=== PATIENT | female | born 1975 | race Hispanic/Latino ===

== ENCOUNTER 2018-11-03 11:38 | Inpatient (IN) | payer OTHER ==
[~2018-11-03] VITALS: Ht 152.4 cm; Wt 61.1 kg
[2018-11-03] MEDS ORDERED: SODIUM CHLORIDE 0.9% 1000ML 1,000 ML IV ONE ×2 (12:21→18:06)
[2018-11-03] MEDS ORDERED: ZOSYN 3.375GM+NS 50ML 50 ML IV ONE ×2 (12:21→21:15)
[2018-11-03 12:29] LABS: BASOPHILS % (AUTO) 0.2 % (0.0-5.0); HEMATOCRIT 35.3 % (42-54); MEAN CORPUSCULAR HEMOGLOBIN 27.7 pg (27.0-33.0); MEAN CORPUSCULAR HGB CONC 33.4 g/dL (32.0-36.0); MEAN CORPUSCULAR VOLUME 82.8 fL (79-99); NEUTROPHILS % (AUTO) 97.8 % (40.0-77.0); PLATELET COUNT (AUTO) 136 K/uL (130-400); RED BLOOD CELL COUNT(AUTO) 4.26 MIL/uL (4.50-6.20); RED CELL DISTRIBUTION WIDTH 13.6 % (11.0-15.5); WHITE BLOOD COUNT (AUTO) 11.1 K/uL (4.8-10.8)
[2018-11-03 12:47] LABS: INR 1.01 (0.85-1.15); PROTHROMBIN TIME 10.6 SEC (9.6-11.6)
[2018-11-03 12:51] LABS: BAND NEUTROPHILS % (MANUAL) 23 % (0-2); SEGMENTED NEUTROPHILS % 77 % (40-70)
[2018-11-03 12:52] LABS: MAN.DIFF COMMENT-IMPRESSION MANUAL DIFFERENTIAL
[2018-11-03 12:53] LABS: ALANINE AMINOTRANSFERASE 280 U/L (12-78); ALBUMIN 3.6 g/dL (3.5-5.0); ASPARTATE AMINOTRANSFERASE 251 U/L (10-37); BILIRUBIN,TOTAL 1.5 mg/dL (0.2-1.0); CARBON DIOXIDE 20 mmol/L (21-32); CHLORIDE 102 mmol/L (101-111); CREATINE KINASE, TOTAL 60 U/L (21-232); CREATININE 1.3 mg/dL (0.5-1.5); GLOMERULAR FILTR. RATE CALC 64 mL/min (>60); GLUCOSE,RANDOM 112 mg/dL (70-105); MYOGLOBIN 47 ng/mL (10-92); PLATELET MORPHOLOGY COMMENT ADEQUATE; SODIUM SERUM 137 mmol/L (136-145); TOTAL PROTEIN, SERUM 7.4 g/dL (6.0-8.3); TROPONIN I < 0.04 ng/mL (0.00-0.06); UREA NITROGEN, BLOOD 17 mg/dL (7-18)
[2018-11-03] MEDS ORDERED: VANCOMYCIN 1GM+NS 250ML 0 ML IV ONE (12:54)
[2018-11-03 12:55] LABS: POTASSIUM 2.7 mmol/L (3.5-5.1)
[2018-11-03] MEDS ORDERED: VANCOMYCIN 1GM+NS 250ML 250 ML IV ONE ×2 (12:56→14:36)
[2018-11-03] MEDS ORDERED: POTASSIUM CHLORIDE 20 MEQ ERTAB PO ONE (13:04)
[2018-11-03] MEDS ORDERED: VANCOMYCIN 1GM+NS 250ML 250 ML IV SCH (13:15)
[2018-11-03] MEDS: SODIUM CHLORIDE 0.9% 1000ML 1,000 ML IV SCH ×2 (14:15→22:15)
[2018-11-03] MEDS ORDERED: ACETAMINOPHEN 325 MG TAB PO PRN (15:45)
[2018-11-03] MEDS ORDERED: HYDRALAZINE HCL 20 MG/ML VIAL IV PRN (15:45)
[2018-11-03] MEDS ORDERED: POTASSIUM CHLORIDE 10% ELIXIR 20 MEQ/15 ML UDCUP PO PRN (15:45)
[2018-11-03] MEDS ORDERED: TRAMADOL HCL 50 MG TABLET ONE (18:10)
[2018-11-03 19:56] LABS: APPEARANCE,URINE CLOUDY (CLEAR); BILIRUBIN,URINE NEGATIVE (NEGATIVE); COLOR,URINE ORANGE (YELLOW); GLUCOSE, URINE (UA) NEGATIVE (NEGATIVE); KETONES,URINE NEGATIVE (NEGATIVE); LEUKOCYTE ESTERASE ,URINE NEGATIVE (NEGATIVE); NITRATE,URINE POSITIVE (NEGATIVE); OCCULT BLOOD,URINE LARGE (NEGATIVE); PH,URINE 5.5 (5.0-8.0); PROTEIN,URINE 30 (NEGATIVE); UROBILINOGEN,URINE 0.2 mg/dL (0.2-1.0)
[2018-11-03 20:05] LABS: AMPHET/METH SCREEN,URINE NEGATIVE (NEGATIVE); BARBITURATE SCREEN, URINE NEGATIVE (NEGATIVE); BENZODIAZEPINES SCREEN,URINE NEGATIVE (NEGATIVE); CANNABINOID SCREEN,URINE NEGATIVE (NEGATIVE); COCAINE SCREEN,URINE NEGATIVE (NEGATIVE); OPIATE SCREEN,URINE NEGATIVE (NEGATIVE); PHENCYCLIDINE SCREEN,URINE NEGATIVE (NEGATIVE)
[2018-11-03 20:37] LABS: WBC,URINE 0-1 /HPF (0-1)
[2018-11-03 20:38] LABS: AMORPHOUS SEDIMENT,UR Few /LPF (None Seen); BACTERIA,URINE Moderate /HPF (None Seen); SQUAMOUS EPITHELIAL CELL,UR Few /HPF (0-2)
[2018-11-03 20:39] LABS: MUCUS,URINE Few LPF (None Seen)
[2018-11-03] MEDS: FAMOTIDINE/PF 20 MG/2 ML VIAL IV SCH (21:00)
[2018-11-03] MEDS: ZOSYN 3.375GM+NS 50ML 50 ML IV SCH (21:00)
[2018-11-03 21:25] LABS: CREATININE 0.7 mg/dL (0.5-1.5); POTASSIUM 3.5 mmol/L (3.5-5.1)
[2018-11-03 21:30] LABS: ALBUMIN 2.6 g/dL (3.5-5.0); BILIRUBIN,TOTAL 1.1 mg/dL (0.2-1.0); TOTAL PROTEIN, SERUM 5.7 g/dL (6.0-8.3)
[2018-11-03 21:33] LABS: BASOPHILS % (AUTO) 0.1 % (0.0-5.0); HEMATOCRIT 27.7 % (36-48); LYMPHOCYTES % (AUTO) 2.5 % (21.0-51.0); MEAN CORPUSCULAR HEMOGLOBIN 27.5 pg (27.0-33.0); MEAN CORPUSCULAR HGB CONC 33.5 g/dL (32.0-36.0); MEAN CORPUSCULAR VOLUME 82.3 fL (79-99); MONOCYTES % (AUTO) 2.1 % (3.0-13.0); NEUTROPHILS % (AUTO) 95.3 % (40.0-77.0); PLATELET COUNT (AUTO) 109 K/uL (130-400); RED BLOOD CELL COUNT(AUTO) 3.36 MIL/uL (4.00-5.50); RED CELL DISTRIBUTION WIDTH 14.1 % (11.0-15.5); WHITE BLOOD COUNT (AUTO) 12.5 K/uL (4.8-10.8)
[2018-11-03] MEDS ORDERED: ONDANSETRON HCL 4 MG/2 ML VIAL ONE (23:32)
[2018-11-03] MEDS ORDERED: MORPHINE SULFATE 2 MG/ML 1ML SYG ONE (23:33)
[2018-11-04] MEDS ORDERED: ONDANSETRON HCL 4 MG/2 ML VIAL ONE ×2 (03:44→11:42)
[2018-11-04] MEDS ORDERED: MORPHINE SULFATE 2 MG/ML 1ML SYG ONE ×2 (03:45→09:28)
[2018-11-04 04:58] LABS: MEAN CORPUSCULAR HEMOGLOBIN 27.7 pg (27.0-33.0); MEAN CORPUSCULAR HGB CONC 33.3 g/dL (32.0-36.0); MEAN CORPUSCULAR VOLUME 83.3 fL (79-99); PLATELET COUNT (AUTO) 89 K/uL (130-400); RED BLOOD CELL COUNT(AUTO) 3.25 MIL/uL (4.00-5.50)
[2018-11-04] MEDS: ZOSYN 3.375GM+NS 50ML 50 ML IV SCH ×3 (05:00→20:36)
[2018-11-04 05:14] LABS: ALBUMIN 2.4 g/dL (3.5-5.0); BILIRUBIN,TOTAL 1.3 mg/dL (0.2-1.0); CREATININE 0.6 mg/dL (0.5-1.5); POTASSIUM 3.4 mmol/L (3.5-5.1); TOTAL PROTEIN, SERUM 5.3 g/dL (6.0-8.3)
[2018-11-04] MEDS: SODIUM CHLORIDE 0.9% 1000ML 1,000 ML IV SCH ×3 (06:15→22:15)
[2018-11-04] MEDS ORDERED: ZOSYN 3.375GM+NS 50ML 50 ML IV ONE (08:03)
[2018-11-04] MEDS: FAMOTIDINE/PF 20 MG/2 ML VIAL IV SCH ×2 (09:00→20:35)
[2018-11-04] MEDS ORDERED: FAMOTIDINE 20MG TAB 20 MG TAB ONE (11:25)
[2018-11-04] MEDS ORDERED: POTASSIUM CHLORIDE 20 MEQ ERTAB PO ONE (11:26)
[2018-11-04] MEDS ORDERED: SODIUM CHLORIDE 0.9% 1000ML 1,000 ML IV ONE (11:42)
[2018-11-04 14:10] VITALS: BP 112/67
--- NOTE | 2018-11-04 14:10 | NUR ---
ADMISSION RECEIVED PT FROM ER, A&OX3, CALM COOPERATIVE AND DOES NOT APPEAR TO BE IN ANY DISTRESS NOR ANY NEURO DEFICITS PRESENT, AMBULATING FROM GURNEY TO BED, GAIT SLOW BUT STEADY WITH STAND BY ASSIST. PT DOES C/O RT FLANK PAIN AND DIZZINESS WITH AMBULATION BUT DENIES NAUSEA. PT RESTING COMFORTABLY, CALL LIGHT WITHIN REACH, FAMILY AT BEDSIDE.
[2018-11-04 16:00] VITALS: BP 148/91
[2018-11-04] MEDS: ONDANSETRON HCL 4 MG/2 ML VIAL IV PRN (17:32)
[2018-11-04] MEDS: MORPHINE SULFATE 2 MG/ML 1ML SYG IVP PRN (17:39)
[2018-11-04] MEDS: TRAMADOL HCL 50 MG TABLET PO PRN (19:37)
[2018-11-04 19:49] VITALS: BP 143/90
--- NOTE | 2018-11-04 20:00 | NUR ---
PATIENT AWAKE AND ALERT, DENIES ANY COMPLAINTS OF PAIN OR DISCOMFORT AT THIS TIME. RIGHT GROIN SITE DRESSING CLEAN, DRY, AND INTACT. SITE APPEARS SOFT TO PALPATION.
--- NOTE | 2018-11-04 22:00 | NUR ---
PATIENT PREP FOR SURGERY WITH SHAVE AND SHOWER. PATIENT VERBALIZED UNDERSTANDING OF NPO AT MIDNIGHT.
[2018-11-04 23:26] VITALS: BP 134/92
--- NOTE | 2018-11-05 01:00 | NUR ---
RT GROIN SITE APPEARS SOFT TO PALPATION. DRESSING INTACT.
[2018-11-05] MEDS: MORPHINE SULFATE 2 MG/ML 1ML SYG IVP PRN ×3 (01:14→18:37)
[2018-11-05 03:46] LABS: BASOPHILS % (AUTO) 0.4 % (0.0-5.0); EOSINOPHILS % (AUTO) 2.6 % (0.0-8.0); HEMATOCRIT 27.4 % (36-48); LYMPHOCYTES % (AUTO) 14.6 % (21.0-51.0); MEAN CORPUSCULAR HEMOGLOBIN 27.9 pg (27.0-33.0); MEAN CORPUSCULAR HGB CONC 33.5 g/dL (32.0-36.0); MEAN CORPUSCULAR VOLUME 83.4 fL (79-99); MONOCYTES % (AUTO) 4.6 % (3.0-13.0); NEUTROPHILS % (AUTO) 77.8 % (40.0-77.0); NUCLEATED RED BLOOD CELLS 0.1 % (0.0-0.19); PLATELET COUNT (AUTO) 100 K/uL (130-400); RED BLOOD CELL COUNT(AUTO) 3.29 MIL/uL (4.00-5.50); RED CELL DISTRIBUTION WIDTH 14.1 % (11.0-15.5); WHITE BLOOD COUNT (AUTO) 8.4 K/uL (4.8-10.8)
[2018-11-05 04:01] VITALS: BP 143/86
[2018-11-05 04:10] LABS: CREATININE 0.7 mg/dL (0.5-1.5); POTASSIUM 3.4 mmol/L (3.5-5.1)
[2018-11-05] MEDS: ZOSYN 3.375GM+NS 50ML 50 ML IV SCH ×3 (04:44→20:51)
[2018-11-05] MEDS: POTASSIUM CHLORIDE 20 MEQ ERTAB PO PRN ×2 (04:45→06:09)
[2018-11-05] MEDS: TRAMADOL HCL 50 MG TABLET PO PRN ×2 (05:00→21:01)
[2018-11-05] MEDS: SODIUM CHLORIDE 0.9% 1000ML 1,000 ML IV SCH ×3 (06:15→22:15)
[2018-11-05 07:00] VITALS: BP 144/79
--- NOTE | 2018-11-05 07:40 | NUR ---
ASSESSMENT ENCOUNTERED PT IN SEMI PRYOR'S POSITION, A&OX3, CALM COOPERATIVE AND DOES NOT APPEAR TO BE IN ANY DISTRESS NOR ANY NEURO DEFICITS PRESENT. PT DOES C/O RT FLANK AND RT UPPER ARM PAIN WITH REDNESS AND TENDER TO TOUCH, WARM COMPRESSES TO RT UPPER ARM. PT IS AMBULATORY, GAIT STEADY AND STRONG WITH STAND BY ASSIST. CALL LIGHT WITHIN REACH.
[2018-11-05 08:19] LABS: HEPATITIS A ANTIBODY IGM Negative (Negative); HEPATITIS B CORE IGM Negative (Negative); HEPATITIS Bs ANTIGEN SCREEN P Negative (Negative)
[2018-11-05 11:00] VITALS: BP 145/88
[2018-11-05] MEDS: ONDANSETRON HCL 4 MG/2 ML VIAL IV PRN ×2 (11:00→18:37)
[2018-11-05] MEDS: FAMOTIDINE/PF 20 MG/2 ML VIAL IV SCH ×2 (11:00→20:51)
[2018-11-05 16:00] VITALS: BP 139/92
--- NOTE | 2018-11-05 16:31 | NUR ---
DC PLAN VISITED WITH PATIENT. PATIENT LIVES WITH SPOUSE. INDEPENDENT ABLE TO PERFORM ADL'S. PATIENT HAS NO SERVICES OR DME'S. FEELS SAFE TO RETURN HOME. Addendum: 11/05/18 at 1632 by CLARIBEL CAMERON RN CM Amended: Links added.
[2018-11-05 19:40] VITALS: BP 124/79
[2018-11-05 23:33] VITALS: BP 130/79
[2018-11-06] MEDS: ONDANSETRON HCL 4 MG/2 ML VIAL IV PRN ×2 (01:18→09:07)
[2018-11-06] MEDS: MORPHINE SULFATE 2 MG/ML 1ML SYG IVP PRN ×2 (01:23→09:00)
[2018-11-06 03:06] VITALS: BP 150/93
[2018-11-06] MEDS: ZOSYN 3.375GM+NS 50ML 50 ML IV SCH (05:05)
[2018-11-06] MEDS: SODIUM CHLORIDE 0.9% 1000ML 1,000 ML IV SCH (05:15)
[2018-11-06 05:16] LABS: BASOPHILS % (AUTO) 0.5 % (0.0-5.0); EOSINOPHILS % (AUTO) 4.6 % (0.0-8.0); HEMATOCRIT 23.6 % (36-48); LYMPHOCYTES % (AUTO) 27.7 % (21.0-51.0); MEAN CORPUSCULAR HEMOGLOBIN 27.4 pg (27.0-33.0); MEAN CORPUSCULAR HGB CONC 33.1 g/dL (32.0-36.0); MEAN CORPUSCULAR VOLUME 82.8 fL (79-99); MONOCYTES % (AUTO) 6.1 % (3.0-13.0); NEUTROPHILS % (AUTO) 61.1 % (40.0-77.0); NUCLEATED RED BLOOD CELLS 0.1 % (0.0-0.19); PLATELET COUNT (AUTO) 93 K/uL (130-400); RED BLOOD CELL COUNT(AUTO) 2.85 MIL/uL (4.00-5.50); WHITE BLOOD COUNT (AUTO) 4.5 K/uL (4.8-10.8)
[2018-11-06 05:28] LABS: CREATININE 0.5 mg/dL (0.5-1.5)
[2018-11-06 05:48] LABS: POTASSIUM 2.9 mmol/L (3.5-5.1)
[2018-11-06] MEDS: TRAMADOL HCL 50 MG TABLET PO PRN ×2 (05:57→15:45)
[2018-11-06] MEDS: POTASSIUM CHLORIDE 20 MEQ ERTAB PO PRN (05:57)
--- NOTE | 2018-11-06 06:00 | NUR ---
PATIENT POTASSIUM LEVEL 2.9, PATIENT REFUSED IV REPLACEMENT, WANTS PO ONLY
[2018-11-06 07:00] VITALS: BP 160/58
--- NOTE | 2018-11-06 07:40 | NUR ---
ASSESSMENT ENCOUNTERED PT A&OX3, CALM COOPERATIVE AND DOES NOT APPEAR TO BE IN ANY DISTRESS NOR ANY NEURO DEFICITS PRESENT. PT DOES C/O RT UPPER ARM PAIN WITH REDNESS PRESENT AND TENDER TO TOUCH. PT ALSO C/O RT FLANK PAIN WITH NO REDNESS PRESENT. PT IS AMBULATORY, GAIT STEADY AND STRONG WITH STAND BY ASSIST. CALL LIGHT WITHIN REACH.
[2018-11-06] MEDS ORDERED: POTASSIUM CHLORIDE 20 MEQ ERTAB PO SCH (08:00)
[2018-11-06] MEDS: FAMOTIDINE/PF 20 MG/2 ML VIAL IV SCH (09:12)
[2018-11-06] MEDS ORDERED: TRAM50TA4 PO (09:18)
[2018-11-06] MEDS ORDERED: TYL3 PO (09:18)
[2018-11-06] MEDS ORDERED: LEVO500T2 PO (09:18)
[2018-11-06] MEDS: POTASSIUM CHLORIDE 20MEQ/100ML 100 ML IV PRN ×2 (09:19→10:59)
[2018-11-06] MEDS: LIDOCAINE HCL-MPF 1% 2ML VIAL IVP PRN ×2 (09:19→10:59)
[2018-11-06] MEDS: MAGNESIUM 2GM PREMIX 50ML 50 ML IV PRN ×2 (09:20→10:58)
[2018-11-06 11:00] VITALS: BP 160/89
[2018-11-06 15:15] LABS: MAGNESIUM 2.6 mg/dL (1.80-2.40); POTASSIUM 4.8 mmol/L (3.5-5.1)
--- NOTE | 2018-11-06 18:17 | NUR ---
DISCHARGE INSTRUCTIONS GIVEN, PIV REMOVED AND INTACT, DISCHARGED HOME TO FAMILY VEHICLE VIA WHEELCHAIR.
== END 2018-11-06 18:30 | disposition home or self-care (01) | DRG 872 ==
LOC: EDH 11:38 → EDSEX 11:39 → EDHIP 11:39 → 2DH 11-04 14:07
PROVIDERS: ADMIT Hospitalist; ATTEND Hospitalist
DX: A41.50 Gram-negative sepsis, unspecified (principal); N39.0 Urinary tract infection, site not specified; E87.6 Hypokalemia; E86.0 Dehydration; N20.0 Calculus of kidney; I80.8 Phlebitis and thrombophlebitis of other sites; R65.20 Severe sepsis without septic shock; E05.90 Thyrotoxicosis, unspecified without thyrotoxic crisis or storm; B96.20 Unspecified Escherichia coli [E. coli] as the cause of diseases classified elsewhere; Z90.710 Acquired absence of both cervix and uterus
CPT/HCPCS: 36415; 71045; 74176; 76705; 80048; 80053; 80074; 80305; 81001; 82550; 83605; 83735; 83874; 84132; 84484; 85025; 85027; 85610; 85730; 87040; 87077; 87088; 87186; 87486; 87581; 87633; 87798; 93005; 99291; G0378; J2405; J2543; J3370; J3475; J3480; J3490; J7030

== ENCOUNTER 2018-11-23 15:43 | Inpatient (IN) | payer OTHER ==
[~2018-11-23] VITALS: Ht 152.4 cm; Wt 59.0 kg
[~2018-11-23 15:43] MED LIST: LEVO500T2 PO; TRAM50TA4 PO; TYL3 PO
[2018-11-23] MEDS ORDERED: ZOSYN 3.375GM+NS 50ML 50 ML IV ONE (16:00)
[2018-11-23 16:23] LABS: INR 1.09 (0.85-1.15); PARTIAL THROMBOPLASTIN TIME 29.3 SEC (26.3-35.5); PROTHROMBIN TIME 11.4 SEC (9.6-11.6)
[2018-11-23 16:29] LABS: ALANINE AMINOTRANSFERASE 201 U/L (12-78); ALBUMIN 2.8 g/dL (3.5-5.0); ASPARTATE AMINOTRANSFERASE 232 U/L (10-37); BILIRUBIN,TOTAL 1.7 mg/dL (0.2-1.0); CARBON DIOXIDE 19 mmol/L (21-32); CHLORIDE 104 mmol/L (101-111); CREATININE 1.5 mg/dL (0.5-1.5); GLOMERULAR FILTR. RATE CALC 40 mL/min (>60); GLUCOSE,RANDOM 105 mg/dL (70-105); SODIUM SERUM 137 mmol/L (136-145); TOTAL PROTEIN, SERUM 6.8 g/dL (6.0-8.3); UREA NITROGEN, BLOOD 21 mg/dL (7-18)
[2018-11-23 16:34] LABS: LIPASE < 50 U/L (114-286); POTASSIUM 2.9 mmol/L (3.5-5.1)
[2018-11-23 16:40] LABS: BASOPHILS % (AUTO) 0.2 % (0.0-5.0); EOSINOPHILS % (AUTO) 0.1 % (0.0-8.0); HEMATOCRIT 32.1 % (36-48); LYMPHOCYTES % (AUTO) 1.5 % (21.0-51.0); MEAN CORPUSCULAR HEMOGLOBIN 27.2 pg (27.0-33.0); MEAN CORPUSCULAR HGB CONC 32.5 g/dL (32.0-36.0); MEAN CORPUSCULAR VOLUME 83.9 fL (79-99); MONOCYTES % (AUTO) 2.4 % (3.0-13.0); NEUTROPHILS % (AUTO) 95.8 % (40.0-77.0); PLATELET COUNT (AUTO) 185 K/uL (130-400); RED BLOOD CELL COUNT(AUTO) 3.83 MIL/uL (4.00-5.50); WHITE BLOOD COUNT (AUTO) 11.7 K/uL (4.8-10.8)
[2018-11-23 16:46] LABS: TROPONIN I 0.05 ng/mL (0.00-0.06)
[2018-11-23] MEDS ORDERED: MORPHINE SULFATE 2 MG/ML 1ML SYG ONE (17:52)
[2018-11-23] MEDS ORDERED: ONDANSETRON HCL 4 MG/2 ML VIAL ONE ×2 (17:52→21:38)
[2018-11-23 18:15] LABS: APPEARANCE,URINE CLOUDY (CLEAR); BILIRUBIN,URINE SMALL (NEGATIVE); COLOR,URINE YELLOW (YELLOW); GLUCOSE, URINE (UA) NEGATIVE (NEGATIVE); KETONES,URINE NEGATIVE (NEGATIVE); LEUKOCYTE ESTERASE ,URINE SMALL (NEGATIVE); NITRATE,URINE POSITIVE (NEGATIVE); OCCULT BLOOD,URINE LARGE (NEGATIVE); PH,URINE 5.5 (5.0-8.0); PROTEIN,URINE 30 mg/dL (NEGATIVE)
[2018-11-23 18:21] LABS: RAPID GROUP A STREP NEGATIVE (NEGATIVE)
[2018-11-23] MEDS ORDERED: SODIUM CHLORIDE 0.9% 1000ML 1,000 ML IV SCH (18:41)
[2018-11-23 18:45] LABS: BACTERIA,URINE Few /HPF (None Seen); MUCUS,URINE Moderate LPF (None Seen); SQUAMOUS EPITHELIAL CELL,UR Few /HPF (0-2)
[2018-11-23] MEDS ORDERED: LIDOCAINE HCL-MPF 1% 2ML VIAL IVP PRN (18:45)
[2018-11-23] MEDS ORDERED: ACETAMINOPHEN 325 MG TAB PO PRN ×2 (18:45)
[2018-11-23] MEDS ORDERED: MAGNESIUM 2GM PREMIX 50ML 50 ML IV PRN (18:45)
[2018-11-23] MEDS ORDERED: POTASSIUM CHLORIDE 10% ELIXIR 20 MEQ/15 ML UDCUP PO PRN (18:45)
[2018-11-23] MEDS ORDERED: POTASSIUM CHLORIDE 20MEQ/100ML 100 ML IV PRN (18:45)
[2018-11-23] MEDS ORDERED: LIDOCAINE HCL-MPF 1% 2ML VIAL ONE ×2 (19:01→20:18)
[2018-11-23] MEDS ORDERED: POTASSIUM CHLORIDE 20MEQ/100ML 100 ML IV ONE (19:02)
[2018-11-23] MEDS ORDERED: SODIUM CHLORIDE 0.9% 1000ML 1,000 ML IV STA ×2 (20:39→21:24)
[2018-11-23] MEDS ORDERED: POTASSIUM CHLORIDE 10% ELIXIR 20 MEQ/15 ML UDCUP ONE (21:23)
[2018-11-23] MEDS ORDERED: FAMOTIDINE 20MG TAB 20 MG TAB ONE (21:23)
[2018-11-23 21:54] LABS: AMPHET/METH SCREEN,URINE POSITIVE (NEGATIVE); BARBITURATE SCREEN, URINE NEGATIVE (NEGATIVE); BENZODIAZEPINES SCREEN,URINE NEGATIVE (NEGATIVE); CANNABINOID SCREEN,URINE NEGATIVE (NEGATIVE); COCAINE SCREEN,URINE NEGATIVE (NEGATIVE); OPIATE SCREEN,URINE NEGATIVE (NEGATIVE); PHENCYCLIDINE SCREEN,URINE NEGATIVE (NEGATIVE)
[2018-11-23 21:57] LABS: MAGNESIUM 1.4 mg/dL (1.80-2.40); THYROID STIMULATING HORMONE 0.48 uIU/mL (0.36-3.74)
[2018-11-23 22:08] LABS: CRP QUANTITATIVE 132.4 mg/L (0.00-9.0)
[2018-11-23] MEDS ORDERED: NOREPINEPHRINE 4MG/NS 250ML 250 ML IV SCH (23:15)
[2018-11-23] MEDS ORDERED: NOREPINEPHRINE BITARTRATE 1 MG/1 ML ML IV ONE (23:18)
[2018-11-23] MEDS ORDERED: MAGNESIUM 2GM PREMIX 50ML 50 ML IV ONE (23:19)
[2018-11-23] MEDS ORDERED: SODIUM CHLORIDE 0.9% 250 ML IV ONE (23:19)
[2018-11-24] MEDS ORDERED: MORPHINE SULFATE 2 MG/ML 1ML SYG ONE ×3 (04:05→17:50)
[2018-11-24] MEDS ORDERED: ZOSYN 3.375GM+NS 50ML 50 ML IV ONE ×2 (04:24→14:57)
[2018-11-24] MEDS: ZOSYN 3.375GM+NS 50ML 50 ML IV SCH ×4 (05:00→21:00)
[2018-11-24 06:18] LABS: HEMATOCRIT 27.9 % (36-48); MEAN CORPUSCULAR HEMOGLOBIN 27.1 pg (27.0-33.0); MEAN CORPUSCULAR HGB CONC 32.2 g/dL (32.0-36.0); MEAN CORPUSCULAR VOLUME 84.2 fL (79-99); PLATELET COUNT (AUTO) 172 K/uL (130-400); RED BLOOD CELL COUNT(AUTO) 3.31 MIL/uL (4.00-5.50); RED CELL DISTRIBUTION WIDTH 14.5 % (11.0-15.5); WHITE BLOOD COUNT (AUTO) 16.2 K/uL (4.8-10.8)
[2018-11-24 06:38] LABS: ALBUMIN 2.3 g/dL (3.5-5.0); BILIRUBIN,TOTAL 1.7 mg/dL (0.2-1.0); CREATININE 0.9 mg/dL (0.5-1.5); MAGNESIUM 2.1 mg/dL (1.80-2.40); POTASSIUM 3.7 mmol/L (3.5-5.1); TOTAL PROTEIN, SERUM 6.1 g/dL (6.0-8.3)
[2018-11-24 07:28] LABS: BAND NEUTROPHILS % (MANUAL) 21 % (0-2); LYMPHOCYTES % (MANUAL) 8 % (22-44); MAN.DIFF COMMENT-IMPRESSION MANUAL DIFFERENTIAL; MONOCYTES % (MANUAL) 6 % (2-9); SEGMENTED NEUTROPHILS % 65 % (40-70)
[2018-11-24 07:29] LABS: PLATELET MORPHOLOGY COMMENT ADEQUATE
[2018-11-24] MEDS ORDERED: ENOXAPARIN SODIUM 30 MG/0.3 ML SQ ONE (08:23)
[2018-11-24] MEDS ORDERED: FAMOTIDINE 20MG TAB 20 MG TAB ONE (08:23)
[2018-11-24] MEDS ORDERED: ENOXAPARIN SODIUM 30 MG/0.3 ML SQ SCH (09:00)
[2018-11-24] MEDS: FAMOTIDINE 20MG TAB 20 MG TAB PO SCH (09:00)
[2018-11-24] MEDS ORDERED: ACETAMINOPHEN 325 MG TAB ONE (09:18)
[2018-11-24] MEDS ORDERED: METHYLPREDNISOLONE SOD SUCC 40MG/ML 1ML ONE (11:53)
[2018-11-24] MEDS ORDERED: METHYLPREDNISOLONE SOD SUCC 40MG/ML 1ML IVP SCH (12:00)
--- NOTE | 2018-11-24 14:48 | NUR ---
DC PLAN DISCUSSED DCP W/ PATIENT. LIVES W/ SPOUSE AND CHILDREN. INDEP ADLS. STATES PLAN IS TO RETURN BACK HOME. CD Addendum: 11/24/18 at 1448 by SAMMIE COTTON CM Amended: Links added.
[2018-11-24] MEDS: DEXTROSE 5 % AND 0.9 % NACL 1,000 ML IV SCH ×2 (15:45→22:33)
[2018-11-24] MEDS ORDERED: MEROPENEM 1 GM VIAL IVP SCH (15:45)
[2018-11-24] MEDS: 1/2 NORMAL SALINE 1,000 ML IV SCH ×4 (15:45→18:45)
[2018-11-24 16:26] LABS: ABG BASE EXCESS -7.6 mmol/L (-2.0-3.0); ABG HCO3 16.6 mmol/L (21.0-28.0); ABG PCO2 31 mmHg (32-45)
[2018-11-24] MEDS ORDERED: MEROPENEM 1 GM VIAL ONE ×2 (16:48→18:33)
[2018-11-24] MEDS ORDERED: 1/2 NORMAL SALINE 1,000 ML IV ONE ×2 (17:13→18:24)
[2018-11-24 21:15] VITALS: BP 147/81
[2018-11-24] MEDS: MEROPENEM 1 GM VIAL IVP SCH (22:00)
[2018-11-24] MEDS: MORPHINE SULFATE 2 MG/ML 1ML SYG IVP PRN (22:33)
[2018-11-24 23:55] VITALS: BP 151/78
[2018-11-25] MEDS ORDERED: LEVO25TA54 PO (03:30)
[2018-11-25 03:54] VITALS: BP 164/83
[2018-11-25 03:54] LABS: HEMATOCRIT 28.4 % (36-48); MEAN CORPUSCULAR HEMOGLOBIN 27.7 pg (27.0-33.0); MEAN CORPUSCULAR HGB CONC 33.3 g/dL (32.0-36.0); PLATELET COUNT (AUTO) 151 K/uL (130-400); RED BLOOD CELL COUNT(AUTO) 3.42 MIL/uL (4.00-5.50); RED CELL DISTRIBUTION WIDTH 14.5 % (11.0-15.5); WHITE BLOOD COUNT (AUTO) 16.6 K/uL (4.8-10.8)
[2018-11-25 04:06] LABS: INR 0.97 (0.85-1.15); PARTIAL THROMBOPLASTIN TIME 32.4 SEC (26.3-35.5); PROTHROMBIN TIME 10.2 SEC (9.6-11.6)
[2018-11-25] MEDS ORDERED: SODIUM CHLORIDE 0.9% 10 ML VIAL ONE (04:08)
[2018-11-25 04:20] LABS: ALBUMIN 2.3 g/dL (3.5-5.0); BILIRUBIN,TOTAL 0.6 mg/dL (0.2-1.0); CREATININE 0.8 mg/dL (0.5-1.5); PHOSPHORUS 2.4 mg/dL (2.5-4.9); POTASSIUM 3.8 mmol/L (3.5-5.1); TOTAL PROTEIN, SERUM 6.2 g/dL (6.0-8.3)
[2018-11-25] MEDS: POTASSIUM CHLORIDE 20 MEQ ERTAB PO PRN (04:29)
[2018-11-25] MEDS: ZOSYN 3.375GM+NS 50ML 50 ML IV SCH ×3 (04:30→20:21)
[2018-11-25] MEDS: MEROPENEM 1 GM VIAL IVP SCH ×4 (04:31→22:00)
[2018-11-25 04:39] LABS: ABG HCO3 21.2 mmol/L (21.0-28.0); ABG OXYGEN SATURATION 97.6 % (95.0-99.0); ABG PCO2 32 mmHg (32-45)
[2018-11-25] MEDS: MORPHINE SULFATE 2 MG/ML 1ML SYG IVP PRN ×4 (04:43→23:15)
[2018-11-25] MEDS: DEXTROSE 5 % AND 0.9 % NACL 1,000 ML IV SCH ×2 (06:28→14:56)
[2018-11-25 07:47] VITALS: BP 165/76
[2018-11-25] MEDS: FAMOTIDINE 20MG TAB 20 MG TAB PO SCH (08:29)
[2018-11-25] MEDS: PANTOPRAZOLE SODIUM 40 MG TABLET.DR PO SCH (08:29)
[2018-11-25] MEDS: ENOXAPARIN SODIUM 40 MG/0.4 ML SYRINGE SQ SCH (08:30)
[2018-11-25 11:47] VITALS: BP 145/81
[2018-11-25 15:52] VITALS: BP 166/78
[2018-11-25] MEDS ORDERED: LEVOFLOXACIN 500 MG/D5W 100 ML 100 ML IV SCH (16:00)
[2018-11-25] MEDS: ONDANSETRON HCL 4 MG/2 ML VIAL IV PRN (17:44)
[2018-11-25 20:09] VITALS: BP 161/80
[2018-11-25 23:29] VITALS: BP 147/76
[2018-11-26 03:50] VITALS: BP 162/83
[2018-11-26 04:01] LABS: HEMATOCRIT 26.8 % (36-48); MEAN CORPUSCULAR HEMOGLOBIN 27.3 pg (27.0-33.0); MEAN CORPUSCULAR HGB CONC 32.9 g/dL (32.0-36.0); MEAN CORPUSCULAR VOLUME 82.9 fL (79-99); NUCLEATED RED BLOOD CELLS 0.1 % (0.0-0.19); PLATELET COUNT (AUTO) 193 K/uL (130-400); RED BLOOD CELL COUNT(AUTO) 3.23 MIL/uL (4.00-5.50); RED CELL DISTRIBUTION WIDTH 14.3 % (11.0-15.5); WHITE BLOOD COUNT (AUTO) 14.5 K/uL (4.8-10.8)
[2018-11-26 04:03] LABS: HEMOGLOBIN A1C 5.5 % (4.0-6.0)
[2018-11-26 04:15] LABS: ALBUMIN 2.2 g/dL (3.5-5.0); BILIRUBIN,TOTAL 0.3 mg/dL (0.2-1.0); CREATININE 0.7 mg/dL (0.5-1.5); POTASSIUM 3.6 mmol/L (3.5-5.1); TOTAL PROTEIN, SERUM 5.9 g/dL (6.0-8.3)
[2018-11-26] MEDS: MEROPENEM 1 GM VIAL IVP SCH ×3 (05:00→21:44)
[2018-11-26 05:03] LABS: ERYTHROCYTE SEDIMENTATION RATE 66 MM/HR (0-20)
[2018-11-26 07:53] VITALS: BP 169/95
[2018-11-26] MEDS: FAMOTIDINE 20MG TAB 20 MG TAB PO SCH (09:28)
[2018-11-26] MEDS: ONDANSETRON HCL 4 MG/2 ML VIAL IV PRN ×2 (09:28→21:50)
[2018-11-26] MEDS: DEXTROSE 5 % AND 0.9 % NACL 1,000 ML IV SCH ×3 (09:28→19:47)
[2018-11-26] MEDS: PANTOPRAZOLE SODIUM 40 MG TABLET.DR PO SCH (09:28)
[2018-11-26] MEDS: MORPHINE SULFATE 2 MG/ML 1ML SYG IVP PRN ×3 (09:29→20:02)
[2018-11-26] MEDS: ENOXAPARIN SODIUM 40 MG/0.4 ML SYRINGE SQ SCH (09:29)
[2018-11-26 12:12] VITALS: BP 167/81
[2018-11-26 15:50] VITALS: BP 156/78
--- NOTE | 2018-11-26 16:45 | NUR ---
INFORMED DR. JARRELL OF THE PERSISTENT BRADYCARDIA. PATIENT IS ASYMPTOMATIC. NO ORDERS AT THIS TIME.
[2018-11-26 20:02] VITALS: BP 142/78
[2018-11-27 00:28] VITALS: BP 175/77
[2018-11-27 03:40] VITALS: BP 143/91
[2018-11-27] MEDS: MORPHINE SULFATE 2 MG/ML 1ML SYG IVP PRN ×2 (03:49→13:25)
[2018-11-27] MEDS: ONDANSETRON HCL 4 MG/2 ML VIAL IV PRN ×3 (03:49→20:54)
[2018-11-27] MEDS: DEXTROSE 5 % AND 0.9 % NACL 1,000 ML IV SCH ×2 (03:49→13:36)
[2018-11-27 04:11] LABS: HEMATOCRIT 29.8 % (36-48); MEAN CORPUSCULAR HEMOGLOBIN 27.5 pg (27.0-33.0); MEAN CORPUSCULAR HGB CONC 33.6 g/dL (32.0-36.0); MEAN CORPUSCULAR VOLUME 81.9 fL (79-99); NUCLEATED RED BLOOD CELLS 0.1 % (0.0-0.19); PLATELET COUNT (AUTO) 192 K/uL (130-400); RED BLOOD CELL COUNT(AUTO) 3.65 MIL/uL (4.00-5.50); RED CELL DISTRIBUTION WIDTH 14.2 % (11.0-15.5); WHITE BLOOD COUNT (AUTO) 10.1 K/uL (4.8-10.8)
[2018-11-27 04:24] LABS: ALBUMIN 2.4 g/dL (3.5-5.0); BILIRUBIN,TOTAL 0.4 mg/dL (0.2-1.0); CREATININE 0.7 mg/dL (0.5-1.5); POTASSIUM 3.2 mmol/L (3.5-5.1); TOTAL PROTEIN, SERUM 6.2 g/dL (6.0-8.3)
[2018-11-27 04:29] LABS: BAND NEUTROPHILS % (MANUAL) 7 % (0-2); BASOPHILS % (MANUAL) 2 % (0-2); EOSINOPHILS % (MANUAL) 3 % (1-6); LYMPHOCYTES % (MANUAL) 25 % (22-44); MAN.DIFF COMMENT-IMPRESSION MANUAL DIFFERENTIAL; MONOCYTES % (MANUAL) 5 % (2-9); PLATELET MORPHOLOGY COMMENT ADEQUATE; SEGMENTED NEUTROPHILS % 58 % (40-70)
[2018-11-27] MEDS: MEROPENEM 1 GM VIAL IVP SCH ×3 (05:21→20:40)
[2018-11-27 07:15] VITALS: BP 144/71
[2018-11-27] MEDS: FAMOTIDINE 20MG TAB 20 MG TAB PO SCH (08:46)
[2018-11-27] MEDS: POTASSIUM CHLORIDE 20 MEQ ERTAB PO PRN ×3 (08:46→13:30)
[2018-11-27] MEDS: PANTOPRAZOLE SODIUM 40 MG TABLET.DR PO SCH (08:46)
[2018-11-27] MEDS: TRAMADOL HCL 50 MG TABLET PO PRN ×2 (08:46→18:28)
[2018-11-27] MEDS: ENOXAPARIN SODIUM 40 MG/0.4 ML SYRINGE SQ SCH (08:47)
--- NOTE | 2018-11-27 11:13 | NUR ---
NOTED TO RIGHT LOWER EXTREMITY REDNESS AND WARMTH. PT STATES SHE DID NOT HAVE REDNESS YESTERDAY ONLY THE SWELLING. DR. JARRELL MAKING ROUNDS AT THIS TIME.
[2018-11-27 11:21] VITALS: BP 145/73
--- NOTE | 2018-11-27 11:42 | NUR ---
MD ROUNDS DR. JARRELL IN TO EVALUATE PATIENT. NEW ORDERS RECEIVED FOR BILATERAL LOWER EXTREMITY VD R/O DVT.
[2018-11-27 15:23] VITALS: BP 142/74
[2018-11-28] VITALS (7 sets, daily range): BP systolic 108–155; BP diastolic 63–85
[2018-11-28] MEDS: MORPHINE SULFATE 2 MG/ML 1ML SYG IVP PRN ×3 (00:08→16:52)
[2018-11-28] MEDS: MEROPENEM 1 GM VIAL IVP SCH (05:08)
[2018-11-28] MEDS: PANTOPRAZOLE SODIUM 40 MG TABLET.DR PO SCH (08:52)
[2018-11-28] MEDS: ENOXAPARIN SODIUM 40 MG/0.4 ML SYRINGE SQ SCH (08:53)
[2018-11-28] MEDS: ONDANSETRON HCL 4 MG/2 ML VIAL IV PRN ×2 (09:04→16:51)
[2018-11-28 09:43] LABS: HEMATOCRIT 32.6 % (36-48); MEAN CORPUSCULAR HEMOGLOBIN 27.6 pg (27.0-33.0); MEAN CORPUSCULAR VOLUME 81.2 fL (79-99); PLATELET COUNT (AUTO) 218 K/uL (130-400); RED BLOOD CELL COUNT(AUTO) 4.02 MIL/uL (4.00-5.50); RED CELL DISTRIBUTION WIDTH 13.4 % (11.0-15.5); WHITE BLOOD COUNT (AUTO) 10.4 K/uL (4.8-10.8)
[2018-11-28] MEDS: DEXTROSE 5 % AND 0.9 % NACL 1,000 ML IV SCH (09:43)
[2018-11-28 09:58] LABS: CREATININE 0.7 mg/dL (0.5-1.5); POTASSIUM 3.9 mmol/L (3.5-5.1)
[2018-11-28] MEDS: CLINDAMYCIN 600 MG/D5% WATER 50 ML IV SCH ×2 (13:55→21:02)
[2018-11-28] MEDS ORDERED: LEVOFLOXACIN 500 MG TABLET PO SCH (14:00)
[2018-11-29] MEDS: CLINDAMYCIN 600 MG/D5% WATER 50 ML IV SCH ×4 (01:21→17:42)
[2018-11-29] MEDS: ONDANSETRON HCL 4 MG/2 ML VIAL IV PRN (02:47)
[2018-11-29] MEDS: MORPHINE SULFATE 2 MG/ML 1ML SYG IVP PRN (02:55)
[2018-11-29 03:29] VITALS: BP 139/74
[2018-11-29 03:40] LABS: BASOPHILS % (AUTO) 0.5 % (0.0-5.0); EOSINOPHILS % (AUTO) 5.3 % (0.0-8.0); HEMATOCRIT 33.3 % (36-48); LYMPHOCYTES % (AUTO) 26.3 % (21.0-51.0); MEAN CORPUSCULAR HEMOGLOBIN 27.3 pg (27.0-33.0); MEAN CORPUSCULAR HGB CONC 33.7 g/dL (32.0-36.0); MEAN CORPUSCULAR VOLUME 80.9 fL (79-99); MONOCYTES % (AUTO) 7.8 % (3.0-13.0); NEUTROPHILS % (AUTO) 60.1 % (40.0-77.0); PLATELET COUNT (AUTO) 220 K/uL (130-400); RED BLOOD CELL COUNT(AUTO) 4.12 MIL/uL (4.00-5.50); RED CELL DISTRIBUTION WIDTH 13.4 % (11.0-15.5); WHITE BLOOD COUNT (AUTO) 7.9 K/uL (4.8-10.8)
[2018-11-29 03:51] LABS: CREATININE 0.7 mg/dL (0.5-1.5); MAGNESIUM 1.9 mg/dL (1.80-2.40); PHOSPHORUS 3.7 mg/dL (2.5-4.9)
[2018-11-29 07:57] VITALS: BP 127/75
[2018-11-29] MEDS: ENOXAPARIN SODIUM 40 MG/0.4 ML SYRINGE SQ SCH (08:19)
--- NOTE | 2018-11-29 08:30 | NUR ---
AM ASSESSMENT PT LAYING IN BED, HOB ELEVATED 30 DEGREES, RESTING. A/O X 3. NO SOB. NO DISTRESS NOTED. DENIES CHEST PAIN OR DISCOMFORT. DENIES PALPITATIONS. TELE: SB 50s. DENIES N/V AND/OR DIARRHEA. GBW. EDEMA RLE. DENIES PAIN @ THIS TIME. UP W/ASSISTANCE. INSTRUCTED TO CALL FOR ASSISTANCE. CALL CHRIS W/IN REACH.
[2018-11-29] MEDS ORDERED: LEVOFLOXACIN 500 MG TABLET PO SCH (09:00)
--- NOTE | 2018-11-29 09:45 | NUR ---
TELEMETRY PT MEDICAL STATUS. TELE MICAH REMOVED @ THIS TIME.
[2018-11-29 12:06] VITALS: BP 118/73
[2018-11-29 16:00] VITALS: BP 110/65
[2018-11-29] MEDS ORDERED: CLIN300C9 PO (16:36)
[2018-11-29] MEDS ORDERED: LEVO500T2 PO (16:36)
--- NOTE | 2018-11-29 17:20 | NUR ---
DISCHARGE VERBAL & WRITTEN DISCHARGE INSTRUCTIONS GIVEN TO PT. QUESTIONS ENCOURAGED & CLARIFIED. PROPER CARE & MGT OF UTI REVIEWED. NEW PRESCRIBED MEDICATIONS REVIEWED. PRESCRIPTION GIVEN TO PT; SIGNED COPY PLACED IN CHART. PT TO F/U W/PCP IN 7-10 DAYS. MADE PT AWARE UNABLE TO SCHEDULE F/U APPT AND PER MD'S OFFICE, PT MAY GO IN A WALK-IN. IV DISCONTINUED. PT TO GATHER PERSONAL BELONGINGS. WILL NOTIFY STAFF WHEN SPOUSE ARRIVES TO TAKE PT HOME.
--- NOTE | 2018-11-29 18:00 | NUR ---
DISCHARGE SPOUSE HERE TO TAKE PT HOME. PT TAKEN TO PRIVATE VEHICLE VIA WC BY MYSELF, Shanelle MARKHAM RN, ACCOMPANIED BY SPOUSE. NO DISTRESS NOTED.
== END 2018-11-29 18:00 | disposition home or self-care (01) | DRG 871 ==
LOC: EDH 15:43 → EDHIP 15:44 → 2DH 11-24 20:53
PROVIDERS: ADMIT Internal Medicine; ATTEND Internal Medicine
DX: A41.9 Sepsis, unspecified organism (principal); R65.21 Severe sepsis with septic shock; N12 Tubulo-interstitial nephritis, not specified as acute or chronic; L03.115 Cellulitis of right lower limb; E87.6 Hypokalemia; E83.42 Hypomagnesemia; I10 Essential (primary) hypertension; G47.33 Obstructive sleep apnea (adult) (pediatric); E86.0 Dehydration; A41.51 Sepsis due to Escherichia coli [E. coli]; K76.0 Fatty (change of) liver, not elsewhere classified; Z16.11 Resistance to penicillins; Z90.710 Acquired absence of both cervix and uterus; Z90.721 Acquired absence of ovaries, unilateral; Z86.72 Personal history of thrombophlebitis; Z87.442 Personal history of urinary calculi; Z82.5 Family history of asthma and other chronic lower respiratory diseases; Z80.49 Family history of malignant neoplasm of other genital organs; Z83.2 Family history of diseases of the blood and blood-forming organs and certain disorders involving the immune mechanism; Z82.49 Family history of ischemic heart disease and other diseases of the circulatory system; Z83.3 Family history of diabetes mellitus
CPT/HCPCS: 36415; 36600; 71045; 74018; 74176; 76700; 80048; 80053; 80305; 80339; 81001; 82550; 82803; 83036; 83605; 83690; 83735; 83874; 84100; 84132; 84443; 84484; 85025; 85027; 85610; 85651; 85730; 86140; 87040; 87077; 87088; 87186; 87804; 87880; 93005; 93970; A4218; G0378; J1650; J2185; J2405; J2543; J2920; J3475; J3480; J3490; J7030; J7042